=== PATIENT | male | born 1965 | race Caucasian/White ===

== ENCOUNTER 2016-10-31 02:22 | Emergency (ER) | payer BC ==
[~2016-10-31] VITALS: Ht 172.7 cm; Wt 144.7 kg
[~2016-10-31 02:22] MED LIST: ASPI81TA2 PO; ATEN25TA PO; GLIP5TAB11 PO; HYDR25TA PO; LISI10TA7 PO; METF10002 PO; MULT-37 PO; PRAV40TA3 PO
--- OUTSIDE RECORDS SUMMARY | 2016-10-31 02:26 | XMS REPORT | Referral Summary ---
Author Author [facility]ad[facility], [facility] Care Organization [facility] Address Unknown Phone Unavailable Care Team Providers Care Maintenance Service Dispatcher Name Role Phone No PCP, States Primary Care Physician [phone] Encounter VC Date(s): 05/11/15 - 05/11/15 [facility] Pradhan Newton [address] [place] [id number] Discharge Disposition: 01-Home or Self Care Attending Physician: Aureliano Ferraro PA-C Admitting Physician: Aureliano Ferraro PA-C Vital Signs Most recent to 1 oldest [Reference Range]: Temperature Tympanic 36.3 degC [36.6-38.1 degC] *LOW* (05/11/15 4:06 PM) Peripheral Pulse 78 bpm Rate [60-100 bpm] (05/11/15 4:06 PM) Blood Pressure 170/96 mmHg [90-140/60-90 mmHg] *HI* (05/11/15 4:06 PM) SpO2 98 % (05/11/15 4:06 PM) Problem List Condition Effective Dates Status Health Status Informant Morbid Active patient obesity(Confirmed) Allergies, Adverse Reactions, Alerts No Known Medication Allergies Medications aspirin 81 mg oral tablet 81 mg 1 tabs, Oral, Daily, # 30 tabs, 0 Refill(s) Start Date: 05/11/15 Status: Ordered atenolol Oral, Daily, 0 Refill(s) Start Date: 05/11/15 Status: Ordered glipiZIDE Oral, Daily, 0 Refill(s) Start Date: 05/11/15 Status: Ordered hydrochlorothiazide Oral, Daily, 0 Refill(s) Start Date: 05/11/15 Status: Ordered lisinopril Oral, Daily, 0 Refill(s) Start Date: 05/11/15 Status: Ordered metFORMIN Oral, 0 Refill(s) Start Date: 05/11/15 Status: Ordered multivitamin Daily, 0 Refill(s) Start Date: 05/11/15 Status: Ordered pravastatin Oral, Bedtime (once a day), 0 Refill(s) Start Date: 05/11/15 Status: Ordered predniSONE 10 mg oral tablet See Instructions, 3 tabs Oral Daily for three days 2 tabs Oral Daily three days 1 tab Oral Daily for three days, # 18 tabs, 0 Refill(s), Pharmacy: [id number], 3 tabs Oral Daily for three days; 2 tabs Oral Daily three days; 1 tab Oral Yamilka... Start Date: 05/11/15 Stop Date: 05/20/15 Status: Ordered Results No data available for this section Immunizations No data available for this section Procedures Procedure Date Related Diagnosis Body Site Colonoscopy Parathyroid Rhinoplasty Tonsillectomy and adenoidectomy Social History Social History Type Response Smoking Status Former smoker1 1Quit smoking in 1993. Assessment and Plan No data available for this section
--- OUTSIDE RECORDS SUMMARY | 2016-10-31 02:26 | XMS REPORT | Continuity of Care Document ---
Author Author [facility] Organization [facility] Address Unknown Phone Unavailable Support Name Relationship Address Phone SAAD GEORGE MD Caregiver [facility] [address] [place] [address] Unavailable KACY ZEPEDA APRN Caregiver [facility] Unknown [phone] FROYLAN REYES Next Of Kin Unknown [phone] Insurance Providers Payer Name Policy Number Subscriber Name Relationship Giovanni Dale Other [id number] Danyel Fair 16 Self Advance Directives Directive Response Recorded Date/Time Advanced Directives Type None 01/06/14 8:38pm Problems Medical Problems Problem Onset Date Status Anxiety Unknown Active Dyspnea Unknown Active Elevated blood sugar Unknown Active Elevated blood sugar Unknown Active Medications No known medications. Social History Social History Problem Response Recorded Date/Time Smoking Status Never smoker 01/06/2014 9:09pm Hospital Discharge Instructions No hospital discharge instructions. Plan of Care No plan of care. Functional Status Query Response Date Recorded Physical Hygiene Self January 06, 2014 9:09pm Disabilities Visual January 06, 2014 9:09pm Devices Used Glasses January 06, 2014 9:09pm Dressing Self January 06, 2014 9:09pm Ambulation Self January 06, 2014 9:09pm Diet Self January 06, 2014 9:09pm Mental Status Alert January 06, 2014 10:37pm Disabilities Visual January 06, 2014 9:09pm Devices Used Glasses January 06, 2014 9:09pm Physical Hygiene Self January 06, 2014 9:09pm Dressing Self January 06, 2014 9:09pm Ambulation Self January 06, 2014 9:09pm Diet Self January 06, 2014 9:09pm Allergies, Adverse Reactions, Alerts No known allergies. Immunizations Name Given Type Hx Influenza Vaccination No Historical Hx Influenza Vaccination No Historical Vital Signs Acute Vital Signs Vital Response Date/Time Temperature (Fahrenheit) 98.2 deg F (96.8 - 99.1) Temperature (Calculated Celsius) 36.58037 degrees C (36.0 - 37.3) Pulse Rate (adult) 108 bpm (60 - 100) Respiratory Rate 22 breaths/min (10 - 20) O2 Sat by Pulse Oximetry 97 % (90 - 100) Blood Pressure 200/109 mm Hg Height 5 ft 8 in Weight 283 lb Body Mass Index 43.0 kg/m^2 Results Test Source Date Result Interp. Ref. Range Comments Alanine Aminotransferase (ALT/SGPT) January 06, 2014 8:45pm 67 U/L N 21-72 Albumin January 06, 2014 8:45pm 4.3 G/DL N 3.5-5.0 Albumin/Globulin Ratio January 06, 2014 8:45pm 1.9 RATIO N 1.1-2.2 Alcohol, Quantitative January 06, 2014 8:45pm <10 MG/DL - Alkaline Phosphatase January 06, 2014 8:45pm 96 U/L N 38-126 Anion Gap January 06, 2014 8:45pm 13 MEQ/L N 5-15 Aspartate Amino Transf (AST/SGOT) January 06, 2014 8:45pm 37 U/L N 17-59 BUN/Creatinine Ratio January 06, 2014 8:45pm 15 RATIO N 6-26 Basophils # (Auto) January 06, 2014 8:45pm 0.0 T/MM3 N 0-0.2 Basophils (%) (Auto) January 06, 2014 8:45pm 0.7 % N 0-2 Blood Urea Nitrogen January 06, 2014 8:45pm 12.0 MG/DL N 9-20 Calcium Level January 06, 2014 8:45pm 9.3 MG/DL N 8.4-10.2 Calculated Osmolality January 06, 2014 8:45pm 278 MOSM/KG N 261-280 Carbon Dioxide Level January 06, 2014 8:45pm 26 MEQ/L N 22-30 Chloride Level January 06, 2014 8:45pm 101 MEQ/L N 98-107 Cholesterol Level September 10, 2011 1:35pm 293 MG/DL H 132-199 Cholesterol/HDL Ratio September 10, 2011 1:35pm 6.5 RATIO H 0-5.0 Creatinine January 06, 2014 8:45pm 0.8 MG/DL N 0.8-1.5 Eosinophils # (Auto) January 06, 2014 8:45pm 0.1 T/MM3 N 0-0.5 Eosinophils (%) (Auto) January 06, 2014 8:45pm 1.5 % N 0-4 Free Thyroxine February 27, 2011 12:00pm 0.84 NG/DL N 0.78-2.19 Globulin January 06, 2014 8:45pm 2.3 G/DL L 2.4-3.6 Glucose Level January 06, 2014 8:45pm 263 MG/DL H 75-110 Hematocrit January 06, 2014 8:45pm 37.9 % L 41-53 Hemoglobin January 06, 2014 8:45pm 12.9 GM/DL L 13.5-17.5 Hemoglobin A1c May 27, 2012 8:55am 10.2 % H 6-7 <6.0 NON-DIABETIC RANGE6.0-7.0 ADA THERAPEUTIC RANGE >7.0 ACTION SUGGESTED LDL Cholesterol, Calculated September 10, 2011 1:35pm 248 H 66-159 Lymphocytes # (Auto) January 06, 2014 8:45pm 1.8 T/MM3 N 1-4.8 Lymphocytes (%) (Auto) January 06, 2014 8:45pm 33.4 % N 23-45 Mean Corpuscular Hemoglobin January 06, 2014 8:45pm 30.5 UUG N 26-34 Mean Corpuscular Hemoglobin Concent January 06, 2014 8:45pm 34.0 GM/DL N 31 -37 Mean Corpuscular Volume January 06, 2014 8:45pm 89.6 UM3 N 80-100 Mean Platelet Volume January 06, 2014 8:45pm 9.4 UM3 N 9.4-12.4 Monocytes # (Auto) January 06, 2014 8:45pm 0.6 T/MM3 N 0-0.8 Monocytes (%) (Auto) January 06, 2014 8:45pm 11.0 % H 0-9.0 Neutrophils # (Auto) January 06, 2014 8:45pm 2.8 T/MM3 N 1.8-7.7 Neutrophils (%) (Auto) January 06, 2014 8:45pm 52.8 % N 33-66 Platelet Count January 06, 2014 8:45pm 240 T/MM3 N 130-400 Potassium Level January 06, 2014 8:45pm 4.3 MEQ/L N 3.6-5 RDW Standard Deviation January 06, 2014 8:45pm 42.1 FL N 36.9-50.2 Red Blood Count January 06, 2014 8:45pm 4.23 M/MM3 L 4.50-5.90 Sodium Level January 06, 2014 8:45pm 140 MEQ/L N 134-144 Thyroid Stimulating Hormone (TSH) September 10, 2011 1:35pm 1.43 MIU/L N 0.47-4.68 Total Bilirubin January 06, 2014 8:45pm 0.30 MG/DL N 0.20-1.30 Total Protein January 06, 2014 8:45pm 6.6 G/DL N 6.3-8.2 Triglycerides Level September 10, 2011 1:35pm 721 MG/DL H 40-160 Troponin I January 06, 2014 8:45pm < 0.012 ng/ml 0-0.12 Urine Microalbumin February 27, 2011 12:00pm 24.6 MG/L H 0-17 VLDL Cholesterol September 10, 2011 1:35pm 144.2 MG/DL H 0-28 White Blood Count January 06, 2014 8:45pm 5.4 T/MM3 N 4.5-11.0 Chemistry Specimen Hemolysis January 06, 2014 8:45pm < 15 0-25 0-25: No Hemolysis.26-70: Slight Hemolysis - can falsely elevate K and Urine Protein. 71-285: Moderate Hemolysis - can falsely elevate K, Troponin I, CA 19-9, PTH, CSF GLucose, and Urine Protein, and can falsely decrease Phenytoin. 286-999: Gross Hemolysis - can falsely elevate K, Troponin I, CA 19-9, PTH, CSF Glucose, and Urine Protine, and can falsely decrease Phenytoin. Recommend specimen recollection. Lab Scanned Report May 27, 2012 9:41pm LAB TEST FORM REQUEST [id number] - HDL Cholesterol Direct September 10, 2011 1:35pm 45 MG/DL N 40-60 Turbidity January 06, 2014 8:45pm 43 H 0-20 0-21: Turbidity not present.22 -999: Turbidity present - Gross turbidity can falsely decrease Lipase and Triglycerides. Glomerular Filtration Rate Calc January 06, 2014 8:45pm 102 - Immature Granulocyte # (Auto) January 06, 2014 8:45pm 0.03 T/MM3 N 0.00- 0.03 Immature Granulocyte % (Auto) January 06, 2014 8:45pm 0.6 % H 0.0-0.5 Icterus Index January 06, 2014 8:45pm < 2 0-7 FA-Vin-O-Type Natriuretic Peptide January 06, 2014 8:45pm 45 PG/ML N 0-175 Rule in cut points: <50 years old=450; 50-75 years old=900; >75 years old=1800; When utilizing ProBNP rule-in cut points, adjustment for impaired renal function is typically not required. Procedures No known history of procedures. Encounters Encounter Location Date/Time Departed Emergency Room [facility] 01/06/14 8:15pm Recent Diagnosis
--- OUTSIDE RECORDS SUMMARY | 2016-10-31 02:27 | XMS REPORT ---
Author Author Sharif Gomez Organization [employer] Address Unknown Phone Unavailable Care Team Providers Care Cotton Washer Name Role Phone Sharif Gomez CP Unavailable Allergies No Known Allergies Problems Problem Type Condition Code Onset Dates Condition Status Problem Palpitation R00.2 Active Problem Hyperlipemia E78.5 Active Problem Hypertension I10 Active Problem Edema R60.9 Active Problem Abnormal EKG R94.31 Active Problem Angina pectoris I20.9 Active Medications No Known Medications Results No Known Results Summary Purpose [employer] Submission
--- OUTSIDE RECORDS SUMMARY | 2016-10-31 02:27 | XMS REPORT ---
Author Author Sharif Gomez [facility] [employer] Address Unknown Phone Unavailable Care Team Providers Care Patternmaker All Around Name Role Phone Sharif Gomez CP Unavailable Allergies, Adverse Reactions, Alerts Substance Reaction Event Type N.K.D.A. Info Not Available Non Drug Allergy Problems Problem Type Condition Code Onset Dates Condition Status Assessment Hyperlipemia E78.5 Active Assessment Edema R60.9 Active Assessment Palpitation R00.2 Active Assessment Angina pectoris I20.9 Active Assessment Abnormal EKG R94.31 Active Problem Palpitation R00.2 Active Problem Hyperlipemia E78.5 Active Problem Hypertension I10 Active Problem Edema R60.9 Active Assessment Hypertension I10 Active Problem Abnormal EKG R94.31 Active Problem Angina pectoris I20.9 Active Medications Medication Code System Code Instructions Start Date End Date Status Dosage GlipiZIDE [facility] [address]-54 5 MG Orally bid [address] [facility] [address]-88 108 (90 Base) MCG/ACT Inhalation qid until empty [address] [facility] [address]-93 40 MG Orally Once a day Jun 09, [address] [facility] [address]-48 50 MG Orally Once a day [address] [facility] [address]-60 25 MG Orally Once a day 1 tablet Metformin ND 0 Orally 1000MG 1 tab bid [address]ivitamins [facility] [address] Orally 1 tab qd not defined Victoza [facility] [address]-00 18 MG/3ML Subcutaneous Once a day as dir Aspirin [facility] [address] 81 MG Orally Once a day [address] [facility] [address]-02 10 MG Orally Once a day [address] [facility] [address]-94 40 MG Orally Once a day Jun 09, 2015 1 tablet Procedures Procedure Coding System Code Date Office Visit, Est Pt., Level 4 CPT-4 45592 Jun 09, 2015 Vital Signs Date/Time: Jun 09, 2015 BMI 45.31 Index Weight 298 lbs Height 5 ft 8 in in Cardiac Monitoring Heart Rate 77 /min Oximetry 98 % Blood Pressure Diastolic 70 mm Hg Blood Pressure Systolic 128 mm Hg Results No Known Results Summary Purpose [employer] Submission
--- OUTSIDE RECORDS SUMMARY | 2016-10-31 02:27 | XMS REPORT ---
Author Author Sharif Gomez [facility] [employer] Address Unknown Phone Unavailable Care Team Providers Care Lining Parts Sewer Name Role Phone Sharif Gomez CP Unavailable Allergies, Adverse Reactions, Alerts Substance Reaction Event Type N.K.D.A. Info Not Available Non Drug Allergy Problems Problem Type Condition Code Onset Dates Condition Status Assessment Edema R60.9 Active Assessment Palpitation R00.2 Active Assessment Angina pectoris I20.9 Active Assessment Abnormal EKG R94.31 Active Problem Palpitation R00.2 Active Problem Hyperlipemia E78.5 Active Problem Hypertension I10 Active Problem Edema R60.9 Active Assessment Hypertension I10 Active Problem Abnormal EKG R94.31 Active Problem Angina pectoris I20.9 Active Medications Medication Code System Code Instructions Start Date End Date Status Dosage Lasix [facility] [address]-24 20 MG Orally Once a day Jun 09, 2015 1 tablet Metformin ND 0 Orally 1000MG 1 tab bid Multivitamins [facility] [address] Orally 1 tab qd not defined Hydrochlorothiazide [facility] [address]-55 25 MG Orally Once a day 1 tablet Atenolol [facility] [address]-62 50 MG Orally Once a day 1 tablet GlipiZIDE [facility] [address]-79 5 MG Orally bid 2 tablet Victoza [facility] [address]-37 18 MG/3ML Subcutaneous Once a day as dir Aspirin [facility] [address]35-[address]47 81 MG Orally Once a day 1 tablet Lipitor [facility] [address]-72 40 MG Orally Once a day Jun 09, 2015 1 tablet Lisinopril [facility] [address]-96 20 MG Orally Once a day 1 tablet Procedures Procedure Coding System Code Date Office Visit, Est Pt., Level 4 CPT-4 52868 Jul 13, 2015 Vital Signs Date/Time: Jul 13, 2015 BMI 45.31 Index Weight 298 lbs Height 5 ft 8 in in Cardiac Monitoring Heart Rate 78 /min Oximetry 98 % Blood Pressure Diastolic 72 mm Hg Blood Pressure Systolic 128 mm Hg Results No Known Results Summary Purpose [employer] Submission
--- OUTSIDE RECORDS SUMMARY | 2016-10-31 02:30 | XMS REPORT | Continuity of Care Document ---
Author Author [facility] Organization [facility] Address Unknown Phone Unavailable Support Name Relationship Address Phone SAAD GEORGE MD Caregiver [facility] [address] [place] [address] Unavailable KACY ZEPEDA APRN Caregiver [facility] Unknown [phone] FROYLAN REYES Next Of Kin Unknown [phone] Insurance Providers Payer Name Policy Number Subscriber Name Relationship Giovanni Dale Other [id number] Danyel Fair 16 Self Advance Directives Directive [...] F (96.8 - 99.1) Temperature (Calculated Celsius) 36.43205 degrees C (36.0 - 37.3) Pulse Rate [...] 27, 2012 9:41pm LAB TEST FORM REQUEST [id number] - HDL Cholesterol Direct September 10, 2011 [...] January 06, 2014 8:45pm < 2 0-7 DF-Qvd-F-Type Natriuretic Peptide January 06, 2014 8:45pm 45 PG/ML N 0-175 Rule in cut points: <50 years old=450; 50-75 years old=900; >75 years old=1800; When utilizing ProBNP rule-in cut points, adjustment for impaired renal function is typically not required. Procedures No known history of procedures. Encounters Encounter Location Date/Time Departed Emergency Room [facility] 01/06/14 8:15pm Recent Diagnosis
--- OUTSIDE RECORDS SUMMARY | 2016-10-31 02:31 | XMS REPORT | Continuity of Care Document ---
Author Author [facility] Organization [facility] Address Unknown Phone Unavailable Allergies Active Description Code Type Severity Reaction Onset Reported/Identified Relationship to Patient Clinical Status Yes No Known Medication Allergies NKMA N/A N/A Medications Problems Procedures Results Encounters ACCT No. Visit Date/Time Discharge Status Pt. Type Provider Facility Loc./Unit Complaint [id number] 05/11/2015 15:52:00 2014 23:59:00 DIS Outpatient Aureliano Ferraro [facility] New IC FLU AND PAIN IN LUNG WHEN BREATHING
[2016-10-31 02:33] VITALS: TEMP 98.8; Ht 172.7 cm; Wt 144.7 kg
[2016-10-31] MEDS ORDERED: ATORVASTATIN PO (03:09)
[2016-10-31] MEDS ORDERED: AMLODIPINE PO (03:09)
[2016-10-31] MEDS ORDERED: FISH1CAP2 PO (03:11)
[2016-10-31] MEDS ORDERED: FURO20TA4 PO (03:11)
[2016-10-31] MEDS ORDERED: CHOL200024 PO (03:11)
[2016-10-31 03:12] LABS: BASOPHILS % (AUTO) 0.4 % (0-2); EOSINOPHILS # (AUTO) 0.1 T/MM3 (0-0.5); EOSINOPHILS % (AUTO) 2.5 % (0-4); HCT - HEMATOCRIT 38.5 % (41-53); HGB - HEMOGLOBIN 12.9 GM/DL (13.5-17.5); IMMATURE GRANULOCYTE # (AUTO) 0.02 T/MM3 (0.00-0.03); IMMATURE GRANULOCYTE % (AUTO) 0.4 % (0.0-0.5); LYMPHOCYTES # (AUTO) 1.5 T/MM3 (1-4.8); LYMPHOCYTES % (AUTO) 27.1 % (23-45); MEAN CORPUSCULAR HGB 30.9 UUG (26-34); MEAN CORPUSCULAR HGB CONC(MCHC 33.5 GM/DL (31-37); MEAN CORPUSCULAR VOLUME 92.3 UM3 (80-100); MEAN PLATELET VOLUME 10.1 UM3 (9.4-12.4); MONOCYTES # (AUTO) 0.6 T/MM3 (0-0.8); MONOCYTES % (AUTO) 10.3 % (0-9.0); NEUTROPHILS #(AUTO)-ABSOLUTE 3.4 T/MM3 (1.8-7.7); NEUTROPHILS % (AUTO) 59.3 % (33-66); RED BLOOD COUNT 4.17 M/MM3 (4.50-5.90); WBC - WHITE BLOOD COUNT 5.7 T/MM3 (4.5-11.0)
[2016-10-31] MEDS ORDERED: INSU300I SQ (03:13)
--- NOTE | 2016-10-31 03:14 | ERPDOC ---
Departure Disposition Decision Date: October 31, 2016 Disposition Decision Time: 03:47 Disposition: 01 DISCHARGED HOME, SELF-CARE Impression Impression Impression: Primary Impression: Congestive heart failure Congestive heart failure type: unspecified congestive heart failure type Congestive heart failure chronicity: acute on chronic Qualified Codes: I50.9 - Heart failure, unspecified Additional Impression: Alcohol abuse Severity: Moderate Condition: Improved Seen By: Physician only Referrals: PREETI LINTON APRN (Family) Patient Instructions: [facility] – [place], [place] Congestive Heart Failure Problems/Meds/Labs Reviewed?: Yes Medications reviewed and manag: Yes Additional Instructions: Lasix 20mg, take two tabs daily for three days, then one daily. See Preeti Dunaway's office today to make appointment as soon as possible to discuss heart failure and alcohol abuse. Decrease alcohol as much as possible to help your heart and diabetes. Return to ER immediately for any worsening. Follow up care ordered?: Yes Mental Status: Alert Scripts Furosemide (Lasix) 20 Mg Tablet 1 TAB PO DAILY, #30 TAB Prov: SAAD GEORGE MD 10/31/16 HPI - Dyspnea General Chief Complaint: Dyspnea/Respdistress Stated Complaint: SHORTNESS OF BREATH Time Seen by Provider: 02:24 Source: patient Exam Limitations: no limitations HPI - Dyspnea Initial Comments Pt presents with complaints of ongoing and worsening dyspnea on exertion for several weeks. Awoke tonight in a panic feeling like he could not breath. Hx of IDDM and hypertension. Pt admits he is a long time alcohol abuser, drinking 12oz whiskey daily, and often binge eats. He knows his bp and DM are never controlled when he is drinking. He also has noted bilateral leg swelling worsening for weeks as well. 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 Tonight the patient became fearful that something was getting much worse and decided to come to ER. Pt admits he has not told his pcp anything about his alcohol use or dyspnea or swelling legs. Occurred At: home Onset/Timing: Gradual Severity: moderate Activities at Onset: sleep Prior Episodes/Possible Cause: frequent episodes Associated Symptoms: shortness of breath, DENIES: chest pain, cough, diaphoresis, fever/chills, headaches, loss of appetite, malaise, nausea/vomiting , rash, seizure, syncope, weakness Aspirin Treatment Today: unknown Hx of Similar Symptoms: Yes Allergies: Coded Allergies: No Known Allergies (Unverified , 10/31/16) Past History Past Medical History Metabolic: diabetes, hypertension Psychological: alcohol abuse Vaccines Hx Influenza Vaccination: No Hx Pneumococcal Vaccination: No Social History Smoking Status: Never smoker Does patient use chewing tobac: No Second Hand Exposure: No Substance Use Type: does not use Alcohol Intake: daily, 2+ drinks per day Record Review Pertinent history updated: Yes Review of Systems Constitutional Constitutional: DENIES: appetite decrease, appetite increase, chills, dizziness , fever, weakness ENMT Ears: DENIES: pain Hearing: DENIES: hearing loss, tinnitus Balance: DENIES: vertigo Mouth/Throat: DENIES: change in swallowing, change in voice, hoarsness, painful swallowing, sore throat Cardiovascular Cardiac: DENIES: chest pain, dyspnea on exertion Rhythm/Rate: DENIES: irregular beat, palpitations, tachycardia Vascular: DENIES: pedal edema Pulmonary Respiratory: dyspnea, DENIES: cough, exposure to TB, hyperventilation, last PPD , pleuritic chest pain, pneumonia hx, recent risky activities, tachypnea GI Upper Abdomen: DENIES: dysphagia, heartburn/indigestion, nausea, pain, vomiting Lower Abdomen: DENIES: blood in stool, constipation, diarrhea, pain General: DENIES: burning, dysuria, frequency, pain, urgency Musculoskeletal General: DENIES: cramps, joint pain, joint swelling, pain, weakness Integumentary Skin: DENIES: rash, sores Neurological General: DENIES: headache, numbness, tingling, vertigo, weakness Psychiatric Psychiatric: DENIES: anxiety, depression, nervousness Physical Exam General General Nourishment: well nourished, well developed, appears stated age, obese General Body Habitus: well groomed Vitals and Pain First Documented Vital Signs Date Time Temp Pulse Resp B/P Pulse Ox O2 Delivery O2 Flow Rate FiO2 10/31/16 02:33 98.8 96 18 211/93 96 Room Air Weight: Kilograms: Height (feet): 5 Height (inches): 8.00 Triage Pain Scale: RN VS reviewed by Provider: Yes Normal Exams: Head: Normocephalic w/o trauma Eyes: Pupils are PERRLA w/ EOMI, No scleral icterus, irritation, or foreign bodies noted ENMT: No facial trauma, nasal exudates, pharyngeal erythema, or exudates are noted Neck: Full range of motion, without adenopathy, JVD, bruits or thyromegaly CV: Regular rate and rhythm, without murmur or gallop, Pulses 2+ all extremities, capillary refill, <2 seconds all ext., no pedal edema noted Abdomen: Bowel sounds positive, soft, non-tender, non-distended, no hepatosplenomegaly, masses or bruits noted Musculoskeletal: No tenderness, or deformity noted, good range of motion, all extremities Integumentary: No rashes, hives, or bruising noted, hair and nails, without abnormality Neurologic: Patient is alert, and oriented, cranial nerves, motor/sensory/ cerebellar, exams w/o gross deficits, to observation Psychiatric: Patient exhibits, appropriate attention, emotion and affect Respiratory (brief) Respiratory: FOUND: equal bilaterally, rales (minimal crackles in the bases only), symmetrical, NOT FOUND: clear all quinn, tenderness, wheezes Lymphatic (brief) Lymphatic Brief: FOUND: lymphedema (2-3+ pitting bilateral LE. ), NOT FOUND: adenopathy Progress Results/Orders Orders Procedure Category Date Status Time Iv Lock (Ed Only) EDM 10/31/16 Transmitted 02:50 Cbc W/Auto LAB 10/31/16 Complete Diff-Reflex Manual Cmp - Comprehensive LAB 10/31/16 Complete Metabolic Troponin I W LAB 10/31/16 Complete Hemolysis Index Probnp LAB 10/31/16 Complete 02:50 D-Dimer LAB 10/31/16 Complete Chest, Pa & Lateral RAD 10/31/16 Logged Lab Results Laboratory Tests Test 10/31/16 03:05 White Blood Count 5.7T/MM3 Red Blood Count 4.17M/MM3 Hemoglobin 12.9GM/DL Hematocrit 38.5% Mean Corpuscular Volume 92.3UM3 Mean Corpuscular Hemoglobin 30.9UUG Mean Corpuscular Hemoglobin Concent 33.5GM/DL RDW Standard Deviation 41.6FL Platelet Count 185T/MM3 Mean Platelet Volume 10.1UM3 Immature Granulocyte % (Auto) 0.4% Neutrophils (%) (Auto) 59.3% Lymphocytes (%) (Auto) 27.1% Monocytes (%) (Auto) 10.3% Eosinophils (%) (Auto) 2.5% Basophils (%) (Auto) 0.4% Absolute Immature Granulocyte (auto 0.02T/MM3 Absolute Neutrophils (auto) 3.4T/MM3 Absolute Lymphocytes (auto) 1.5T/MM3 Absolute Monocytes (auto) 0.6T/MM3 Absolute Eosinophils (auto) 0.1T/MM3 Absolute Basophils (auto) 0.0T/MM3 D-Dimer 228NG/ML Turbidity < 20 Sodium Level 145MEQ/L Potassium Level 4.0MEQ/L Chloride Level 101MEQ/L Carbon Dioxide Level 29MEQ/L Anion Gap 15MEQ/L Blood Urea Nitrogen 22.0MG/DL Creatinine 1.5MG/DL Glomerular Filtration Rate Calc 49 BUN/Creatinine Ratio 15RATIO Glucose Level 244MG/DL Calculated Osmolality 290MOSM/KG Calcium Level 10.9MG/DL Total Bilirubin 0.90MG/DL Icterus Index < 2 Aspartate Amino Transf (AST/SGOT) 32U/L Alanine Aminotransferase (ALT/SGPT) 52U/L Alkaline Phosphatase 51U/L Troponin I 0.035ng/ml HF-Smn-V-Type Natriuretic Peptide 450PG/ML Total Protein 6.3G/DL Albumin 4.2G/DL Globulin 2.1G/DL Albumin/Globulin Ratio 2.0RATIO Chemistry Specimen Hemolysis < 15 Progress Progress EKG - Troponin - normal D-dimer - normal ProBNP - moderately elevated, 450 CBC - normal CMP - normal CXR - moderate diffuse interstitial infiltrate consistent with mild pulmonary edema Shared decision-making - patient elects IV Lasix at this time, we'll increase the patient's Lasix dose to 40 mg daily for 3 days, then titrated as needed SAAD GEORGE MD October 31, 2016 03:14
[2016-10-31 03:22] LABS: ALBUMIN 4.2 G/DL (3.5-5.0); ALKALINE PHOSPHATASE 51 U/L (38-126); ALT (SGPT) 52 U/L (21-72); ANION GAP 15 MEQ/L (5-15); AST (SGOT) 32 U/L (17-59); BUN/CREATININE RATIO 15 RATIO (6-26); CALCIUM 10.9 MG/DL (8.4-10.2); CHLORIDE 101 MEQ/L (98-107); CO2 - CARBON DIOXIDE 29 MEQ/L (22-30); CREATININE 1.5 MG/DL (0.8-1.5); GLOMERULAR FILTRATION RATE 49; GLUCOSE 244 MG/DL (75-110); SODIUM 145 MEQ/L (134-144); TOTAL PROTEIN 6.3 G/DL (6.3-8.2)
--- NOTE | 2016-10-31 03:25 | NUR ---
IMAGING PT LEAVES VIA WHEELCHAIR WITH IMAGING STAFF AT THIS TIME.
--- NOTE | 2016-10-31 03:41 | NUR ---
RETURN PT RETURNS TO ROOM.
--- NOTE | 2016-10-31 03:44 | NUR ---
PROVIDER DR GEORGE IN ROOM TO DISCUSS LAB/XR RESULTS WITH PT.
[2016-10-31] MEDS ORDERED: FUROSEMIDE 40 MG/4 ML INJECTION IV ONE (03:45)
[2016-10-31] MEDS ORDERED: FURO-154 PO (03:51)
[2016-10-31 04:03] VITALS: BP 174/91; PULSE 94; RESP 20; O2SAT 94
--- NOTE | 2016-10-31 04:03 | NUR ---
DEPART PT IS DISCHARGED AT THIS TIME, INSTRUCTIONS ARE REVIEWED AND UNDERSTANDING IS VOICED. PT LEAVES AMBULATORY.
--- NOTE | 2016-10-31 09:04 | DI ---
EXAM: CHEST, PA LATERAL [id number] hours COMPARISON: 01/06/2014. HISTORY: ITS.REASON: dyspnea . FINDINGS: The heart is enlarged. The pulmonary vascularity is indistinct. Increased interstitial markings are seen throughout the lungs. Septal lines are seen at the periphery of the mid to lower lungs. There is no evidence for pleural effusion. There is no evidence for a pneumothorax. No osseous abnormalities are identified. IMPRESSION: 1. Cardiomegaly with increased interstitial markings likely representing early congestion or interstitial edema versus pneumonitis. Clinical correlation is suggested. LOCATION OF DICTATION: [facility] [place] .
== END 2016-10-31 04:03 | disposition home or self-care (01) ==
LOC: ED 02:22
DX: I11.0 Hypertensive heart disease with heart failure (principal); I50.9 Heart failure, unspecified; F10.10 Alcohol abuse, uncomplicated; Y90.9 Presence of alcohol in blood, level not specified
CPT/HCPCS: 71020; 80053; 83880; 84484; 85025; 85379; 96374; 99284; J1940